=== PATIENT | male | born 1960 | race Caucasian/White ===

== ENCOUNTER 2018-11-16 15:29 | Emergency (ER) | payer MEDICARE ==
[~2018-11-16] VITALS: Ht 172.7 cm; Wt 100.0 kg
[2018-11-16 16:52] LABS: HEMATOCRIT. 36.3 % (42.0-52.0); HEMOGLOBIN. 12.6 g/dL (14.0-18.0); MEAN CORPUSCULAR HEMOGLOBIN 30.9 pg (28.0-32.0); MEAN CORPUSCULAR VOLUME 89.3 fL (80.0-94.0); MEAN PLATELET VOLUME 8.7 fl (7.4-10.4); PLATELET 244 x1000/uL (130-400); RED BLOOD CELL COUNT 4.06 mill/uL (4.7-6.1); RED CELL DISTRIBUTION WIDTH 13.9 % (11.6-14.6)
[2018-11-16 16:52] LABS: CLARITY URINE CLEAR (CLEAR); COLOR URINE YELLOW (YELLOW); KETONES URINE TRACE (NEGATIVE); LEUKOCYTE ESTERASE URINE NEGATIVE (NEGATIVE); NITRITE URINE NEGATIVE (NEGATIVE); OCCULT BLOOD URINE TRACE (NEGATIVE); PROTEIN URINE NEGATIVE (NEGATIVE); SPECIFIC GRAVITY URINE 1.024 (1.005-1.030)
[2018-11-16 16:57] LABS: CHLORIDE 113 mEq/L (98-107)
[2018-11-16 17:02] LABS: ETHANOL BLOOD < 10 mg/dL
[2018-11-16 17:54] LABS: *BARBITURATES SCREEN URINE NEGATIVE (NEGATIVE)
[2018-11-16 17:55] LABS: *AMPHETAMINES SCREEN URINE NEGATIVE (NEGATIVE); *BENZODIAZEPINES SCREEN URINE NEGATIVE (NEGATIVE); *COCAINE SCREEN URINE NEGATIVE (NEGATIVE); METHADONE URINE SCREEN NEGATIVE (NEGATIVE); OPIATES URINE SCREEN NEGATIVE (NEGATIVE); PHENCYCLIDINE URINE SCREEN NEGATIVE (NEGATIVE)
[2018-11-16 17:56] LABS: CANNABINOID URINE SCREEN NEGATIVE (NEGATIVE)
[2018-11-16 18:51] LABS: PLATELET ESTIMATE NORMAL
[2018-11-16 19:10] VITALS: BP 115/77
== END 2018-11-16 19:00 | disposition home or self-care (01) ==
LOC: ER 15:29
DX: F32.9 Major depressive disorder, single episode, unspecified (principal); R45.851 Suicidal ideations; J45.909 Unspecified asthma, uncomplicated; I10 Essential (primary) hypertension
CPT/HCPCS: 36415; 80305; 80320; 81003; 82962; 99284; G0480

== ENCOUNTER 2018-11-21 15:49 | Emergency (ER) | payer MEDICARE ==
[~2018-11-21] VITALS: Ht 175.3 cm; Wt 100.0 kg
[2018-11-21 18:00] VITALS: BP 126/87
== END 2018-11-21 18:16 | disposition home or self-care (01) ==
LOC: ER 15:49
DX: T15.82XA Foreign body in other and multiple parts of external eye, left eye, initial encounter (principal); T15.81XA Foreign body in other and multiple parts of external eye, right eye, initial encounter; X58.XXXA Exposure to other specified factors, initial encounter; J45.909 Unspecified asthma, uncomplicated; I10 Essential (primary) hypertension
CPT/HCPCS: 99283

== ENCOUNTER 2018-12-07 14:42 | Emergency (ER) | payer MEDICARE ==
[~2018-12-07] VITALS: Ht 167.6 cm; Wt 85.0 kg
[2018-12-07 15:35] LABS: CHLORIDE 110 mEq/L (98-107)
[2018-12-07 15:38] LABS: ETHANOL BLOOD < 10 mg/dL
[2018-12-07 15:41] LABS: BASOPHILS % 0.8 % (0.0-2.0); EOSINOPHILS % 2.9 % (0.0-5.0); HEMATOCRIT. 39.5 % (42.0-52.0); HEMOGLOBIN. 13.7 g/dL (14.0-18.0); LYMPHOCYTES % 17.1 % (20.0-50.0); MEAN CORPUSCULAR HEMOGLOBIN 30.5 pg (28.0-32.0); MEAN PLATELET VOLUME 8.9 fl (7.4-10.4); MONOCYTES % 7.8 % (2.0-8.0); NEUTROPHILS % 71.4 % (40.0-76.0); PLATELET 244 x1000/uL (130-400); RED BLOOD CELL COUNT 4.48 mill/uL (4.7-6.1); RED CELL DISTRIBUTION WIDTH 14.2 % (11.6-14.6)
[2018-12-07 16:15] LABS: CLARITY URINE CLEAR (CLEAR); COLOR URINE YELLOW (YELLOW); KETONES URINE TRACE (NEGATIVE); LEUKOCYTE ESTERASE URINE NEGATIVE (NEGATIVE); NITRITE URINE NEGATIVE (NEGATIVE); OCCULT BLOOD URINE NEGATIVE (NEGATIVE); PH URINE 6.5 (4.5-8.0); PROTEIN URINE NEGATIVE (NEGATIVE); SPECIFIC GRAVITY URINE 1.032 (1.005-1.030)
[2018-12-07 16:27] LABS: *AMPHETAMINES SCREEN URINE NEGATIVE (NEGATIVE); *BARBITURATES SCREEN URINE NEGATIVE (NEGATIVE); *BENZODIAZEPINES SCREEN URINE NEGATIVE (NEGATIVE); *COCAINE SCREEN URINE NEGATIVE (NEGATIVE); METHADONE URINE SCREEN NEGATIVE (NEGATIVE); OPIATES URINE SCREEN NEGATIVE (NEGATIVE)
[2018-12-07 16:28] LABS: CANNABINOID URINE SCREEN NEGATIVE (NEGATIVE); PHENCYCLIDINE URINE SCREEN NEGATIVE (NEGATIVE)
[2018-12-08] MEDS ORDERED: DIVALPROEX SODIUM 250MG ER TABLET PO NR (13:30)
[2018-12-08] MEDS ORDERED: HALOPERIDOL 5MG TABLET PO NR (13:38)
[2018-12-08] MEDS ORDERED: ACETAMINOPHEN 325MG TABLET PO STA (14:11)
[2018-12-08] MEDS ORDERED: LORAZEPAM 1MG TABLET PO ONE (15:30)
[2018-12-09] MEDS ORDERED: ACETAMINOPHEN 500MG TABLET PO ONE (02:15)
[2018-12-09] MEDS ORDERED: HALOPERIDOL 5MG TABLET PO ONE (03:15)
[2018-12-09] MEDS ORDERED: DIVALPROEX SODIUM 250MG ER TABLET PO ONE (03:15)
[2018-12-09] MEDS ORDERED: LORAZEPAM 1MG TABLET PO ONE (07:15)
[2018-12-09 10:58] VITALS: BP 135/85
== END 2018-12-09 11:04 | disposition home or self-care (01) ==
LOC: ER 14:42
DX: F98.9 Unspecified behavioral and emotional disorders with onset usually occurring in childhood and adolescence (principal); J45.909 Unspecified asthma, uncomplicated; I10 Essential (primary) hypertension; F20.9 Schizophrenia, unspecified
CPT/HCPCS: 36415; 71045; 80053; 80305; 80320; 81003; 82962; 85025; 93005; 99284; J1630; G0480

== ENCOUNTER 2018-12-31 17:20 | Emergency (ER) | payer MEDICARE, MEDICAID ==
[~2018-12-31] VITALS: Ht 162.6 cm; Wt 100.0 kg
[2018-12-31 19:35] LABS: BASOPHILS % 0.6 % (0.0-2.0); EOSINOPHILS % 3.9 % (0.0-5.0); HEMATOCRIT. 40.9 % (42.0-52.0); HEMOGLOBIN. 13.9 g/dL (14.0-18.0); LYMPHOCYTES % 19.7 % (20.0-50.0); MEAN CORPUSCULAR HEMOGLOBIN 30.1 pg (28.0-32.0); MEAN CORPUSCULAR VOLUME 88.8 fL (80.0-94.0); MONOCYTES % 6.8 % (2.0-8.0); PLATELET 312 x1000/uL (130-400); RED BLOOD CELL COUNT 4.61 mill/uL (4.7-6.1); RED CELL DISTRIBUTION WIDTH 14.3 % (11.6-14.6)
[2018-12-31 19:41] LABS: CHLORIDE 107 mEq/L (98-107)
[2018-12-31 19:46] LABS: ETHANOL BLOOD < 10 mg/dL
[2018-12-31 19:53] LABS: OPIATES URINE SCREEN NEGATIVE (NEGATIVE)
[2018-12-31 19:55] LABS: CANNABINOID URINE SCREEN NEGATIVE (NEGATIVE); PHENCYCLIDINE URINE SCREEN NEGATIVE (NEGATIVE)
[2018-12-31 19:56] LABS: *AMPHETAMINES SCREEN URINE NEGATIVE (NEGATIVE); *BARBITURATES SCREEN URINE NEGATIVE (NEGATIVE); *BENZODIAZEPINES SCREEN URINE NEGATIVE (NEGATIVE); *COCAINE SCREEN URINE NEGATIVE (NEGATIVE); METHADONE URINE SCREEN NEGATIVE (NEGATIVE)
[2019-01-01] MEDS ORDERED: DIPHENHYDRAMINE 50MG CAPSULE PO ONE (00:30)
[2019-01-01] MEDS ORDERED: RISPERIDONE 1MG TABLET PO STA (00:55)
[2019-01-01] MEDS ORDERED: ZIPRASIDONE HCL 20MG CAPSULE PO ONE (01:00)
[2019-01-01] MEDS ORDERED: LORAZEPAM 1MG TABLET PO ONE (13:45)
[2019-01-01] MEDS ORDERED: ENALAPRIL 5MG TABLET PO SCH (17:15)
[2019-01-01 18:53] VITALS: BP 147/78
== END 2019-01-01 18:55 ==
LOC: ER 17:20
DX: F23 Brief psychotic disorder (principal); R45.851 Suicidal ideations; R05 Cough; I10 Essential (primary) hypertension; E78.00 Pure hypercholesterolemia, unspecified; J45.909 Unspecified asthma, uncomplicated
CPT/HCPCS: 36415; 71045; 80053; 80305; 80307; 80320; 80329; 84484; 85025; 93005; 99284; Q0163; G0480

== ENCOUNTER 2019-01-16 12:54 | Emergency (ER) | payer MEDICARE, MEDICAID ==
[~2019-01-16] VITALS: Ht 177.8 cm; Wt 100.0 kg
[2019-01-16 15:38] LABS: BASOPHILS % 1.4 % (0.0-2.0); EOSINOPHILS % 3.6 % (0.0-5.0); HEMOGLOBIN. 13.3 g/dL (14.0-18.0); LYMPHOCYTES % 22.8 % (20.0-50.0); MEAN CORPUSCULAR HEMOGLOBIN 30.3 pg (28.0-32.0); MEAN CORPUSCULAR VOLUME 88.7 fL (80.0-94.0); MEAN PLATELET VOLUME 8.4 fl (7.4-10.4); MONOCYTES % 7.7 % (2.0-8.0); NEUTROPHILS % 64.5 % (40.0-76.0); PLATELET 276 x1000/uL (130-400); RED CELL DISTRIBUTION WIDTH 14.5 % (11.6-14.6)
[2019-01-16 15:44] LABS: CHLORIDE 106 mEq/L (98-107)
[2019-01-16 15:48] LABS: ETHANOL BLOOD < 10 mg/dL
[2019-01-16 16:14] LABS: CLARITY URINE CLEAR (CLEAR); COLOR URINE YELLOW (YELLOW); KETONES URINE NEGATIVE (NEGATIVE); LEUKOCYTE ESTERASE URINE NEGATIVE (NEGATIVE); NITRITE URINE NEGATIVE (NEGATIVE); OCCULT BLOOD URINE TRACE (NEGATIVE); PROTEIN URINE NEGATIVE (NEGATIVE); UROBILINOGEN URINE 0.2 E.U./dL (0.2-1.0)
[2019-01-16 16:26] LABS: *AMPHETAMINES SCREEN URINE NEGATIVE (NEGATIVE); *BARBITURATES SCREEN URINE NEGATIVE (NEGATIVE); *BENZODIAZEPINES SCREEN URINE NEGATIVE (NEGATIVE); *COCAINE SCREEN URINE NEGATIVE (NEGATIVE)
[2019-01-16 16:27] LABS: CANNABINOID URINE SCREEN NEGATIVE (NEGATIVE); METHADONE URINE SCREEN NEGATIVE (NEGATIVE); OPIATES URINE SCREEN NEGATIVE (NEGATIVE); PHENCYCLIDINE URINE SCREEN NEGATIVE (NEGATIVE)
[2019-01-17 08:08] VITALS: BP 110/93
== END 2019-01-17 08:25 | disposition home or self-care (01) ==
LOC: ER 12:54
DX: F41.9 Anxiety disorder, unspecified (principal); F20.9 Schizophrenia, unspecified; F43.10 Post-traumatic stress disorder, unspecified; I10 Essential (primary) hypertension; E78.00 Pure hypercholesterolemia, unspecified; J45.909 Unspecified asthma, uncomplicated
CPT/HCPCS: 36415; 80305; 80307; 80320; 80329; 81003; 99284; G0480

== ENCOUNTER 2019-01-23 13:54 | Emergency (ER) | payer MEDICARE, MEDICAID ==
[~2019-01-23] VITALS: Ht 167.6 cm; Wt 98.0 kg
[2019-01-23 16:57] LABS: CLARITY URINE CLEAR (CLEAR); COLOR URINE YELLOW (YELLOW); KETONES URINE NEGATIVE (NEGATIVE); LEUKOCYTE ESTERASE URINE NEGATIVE (NEGATIVE); NITRITE URINE NEGATIVE (NEGATIVE); OCCULT BLOOD URINE TRACE (NEGATIVE); PROTEIN URINE NEGATIVE (NEGATIVE); SPECIFIC GRAVITY URINE 1.014 (1.005-1.030); UROBILINOGEN URINE 0.2 E.U./dL (0.2-1.0)
[2019-01-23 17:08] LABS: *AMPHETAMINES SCREEN URINE NEGATIVE (NEGATIVE)
[2019-01-23 17:10] LABS: *BARBITURATES SCREEN URINE NEGATIVE (NEGATIVE); *BENZODIAZEPINES SCREEN URINE NEGATIVE (NEGATIVE); *COCAINE SCREEN URINE NEGATIVE (NEGATIVE); CANNABINOID URINE SCREEN NEGATIVE (NEGATIVE); METHADONE URINE SCREEN NEGATIVE (NEGATIVE); OPIATES URINE SCREEN NEGATIVE (NEGATIVE); PHENCYCLIDINE URINE SCREEN NEGATIVE (NEGATIVE)
[2019-01-23 17:44] LABS: CHLORIDE 108 mEq/L (98-107)
[2019-01-23 17:46] LABS: BASOPHILS % 0.9 % (0.0-2.0); EOSINOPHILS % 4.2 % (0.0-5.0); HEMATOCRIT. 40.2 % (42.0-52.0); HEMOGLOBIN. 13.7 g/dL (14.0-18.0); LYMPHOCYTES % 23.9 % (20.0-50.0); MEAN CORPUSCULAR HEMOGLOBIN 30.1 pg (28.0-32.0); MEAN CORPUSCULAR VOLUME 88.6 fL (80.0-94.0); MEAN PLATELET VOLUME 8.9 fl (7.4-10.4); MONOCYTES % 6.5 % (2.0-8.0); NEUTROPHILS % 64.5 % (40.0-76.0); PLATELET 257 x1000/uL (130-400); RED BLOOD CELL COUNT 4.54 mill/uL (4.7-6.1); RED CELL DISTRIBUTION WIDTH 14.8 % (11.6-14.6)
[2019-01-23 17:51] LABS: ETHANOL BLOOD < 10 mg/dL
[2019-01-24 10:20] VITALS: BP 133/83
== END 2019-01-24 10:29 | disposition home or self-care (01) ==
LOC: ER 13:54
DX: F23 Brief psychotic disorder (principal); F41.9 Anxiety disorder, unspecified; J45.909 Unspecified asthma, uncomplicated; E78.00 Pure hypercholesterolemia, unspecified; I10 Essential (primary) hypertension
CPT/HCPCS: 36415; 80305; 80320; 81003; 99283; G0480

== ENCOUNTER 2019-01-24 15:37 | Emergency (ER) | payer MEDICARE, MEDICAID ==
[~2019-01-24] VITALS: Ht 172.7 cm; Wt 90.0 kg
[2019-01-24] MEDS ORDERED: SODIUM CHLORIDE 0.9% 1,000 ML IV ONE (17:22)
[2019-01-24] MEDS ORDERED: ONDANSETRON HCL 4MG/2ML INJ IV STA (17:22)
[2019-01-24 17:40] LABS: BASOPHILS % 0.9 % (0.0-2.0); EOSINOPHILS % 1.2 % (0.0-5.0); HEMATOCRIT. 39.5 % (42.0-52.0); HEMOGLOBIN. 13.4 g/dL (14.0-18.0); LYMPHOCYTES % 15.2 % (20.0-50.0); MEAN CORPUSCULAR VOLUME 88.3 fL (80.0-94.0); MEAN PLATELET VOLUME 8.5 fl (7.4-10.4); MONOCYTES % 6.4 % (2.0-8.0); NEUTROPHILS % 76.3 % (40.0-76.0); PLATELET 287 x1000/uL (130-400); RED BLOOD CELL COUNT 4.48 mill/uL (4.7-6.1); RED CELL DISTRIBUTION WIDTH 14.5 % (11.6-14.6)
[2019-01-24 17:51] LABS: CHLORIDE 109 mEq/L (98-107)
[2019-01-24 17:55] VITALS: BP 145/98
== END 2019-01-24 19:20 | disposition home or self-care (01) ==
LOC: ER 15:53
DX: Z04.89 Encounter for examination and observation for other specified reasons (principal); F20.9 Schizophrenia, unspecified; E78.00 Pure hypercholesterolemia, unspecified; I10 Essential (primary) hypertension; J45.909 Unspecified asthma, uncomplicated; F17.210 Nicotine dependence, cigarettes, uncomplicated; Z71.6 Tobacco abuse counseling
CPT/HCPCS: 36415; 80053; 83690; 85025; 99283; 99406; J7030